=== PATIENT | male | born 1945 | race Caucasian/White ===

== ENCOUNTER → 2017-08-18 | Outpatient (CLI) | payer MEDICARE, OTHER ==
--- NOTE | 2017-08-18 11:26 | RAD ---
EXAM DESCRIPTION: KUB CLINICAL HISTORY: URINARY CALCULUS COMPARISON: None TECHNIQUE: Frontal view of abdomen and pelvis FINDINGS: General paucity of bowel gas in abdomen and pelvis. Slightly increased stool content in several colonic segments. No pneumatosis nor intraperitoneal free air. No pathologic calcification overlying either renal contour. Bony structures in lumbar spine appear intact with multilevel degenerative changes. IMPRESSION: No calcific urolithiasis clearly identified in this study. Paucity of bowel gas. No pneumatosis nor intraperitoneal free air. Question mild constipation Electronically signed by: Pal Mendoza MD 08/18/2017 11:25 AM DANCE THERAPIST
== END ==
LOC: RAD 10:43
PROVIDERS: ATTEND Urology
DX: N20.0 Calculus of kidney (principal); N20.9 Urinary calculus, unspecified

== ENCOUNTER → 2017-08-19 | Outpatient (CLI) | payer MEDICARE, OTHER ==
--- NOTE | 2017-08-19 10:42 | US ---
ABDOMINAL ULTRASOUND HISTORY:GEN ABD PAIN] COMPARISON: None TECHNIQUE: Grayscale and color Doppler sonographic evaluations of abdominal visceral organs FINDINGS: Liver demonstrates unremarkable echotexture. Several simple and minimally complex cysts identified in liver, the largest in the right hepatic lobe measures 7.7 x 7.7 x 6.0 cm. No concerning mass nor abnormal intrahepatic biliary distention. Major portal veins are patent with unremarkable directions of flow. Gallbladder is unremarkable in appearance with normal wall thickness. No shadowing stones nor pericholecystic fluid is identified. No sonographic Hill's sign. Common bile duct measures 6.1 mm in diameter. Spleen measures 13.1 cm in maximal span with unremarkable echotexture. Pancreas is unremarkable in appearance. Right kidney measures 12.5 cm in maximal span, and left kidney measures 13.5 cm in maximal span. No shadowing stone, hydronephrosis nor cortical lesion in either kidney. Abdominal aorta is patent with maximal diameter of 1.8 cm. IVC is patent. IMPRESSION: 1. No cholelithiasis nor sonographic suggestion of cholecystitis. 2. No abnormal intrahepatic and extrahepatic biliary distention. 3. No abnormality in either kidney. 4. No aneurysmal dilatation of abdominal aorta 5. Several simple and minimally complex cysts in liver. No concerning mass in liver. Electronically signed by: Pal Mendoza MD 08/19/2017 10:41 AM [employer]OCI[employer]
== END ==
LOC: US 08:35
PROVIDERS: ATTEND Family Medicine
DX: R10.84 Generalized abdominal pain (principal)

== ENCOUNTER → 2018-03-03 | Outpatient (CLI) | payer MEDICARE, OTHER ==
--- NOTE | 2018-03-03 16:28 | CT ---
EXAM DESCRIPTION: Head CLINICAL HISTORY: DIZZINESS COMPARISON: None available TECHNIQUE: Noncontrast head CT was performed with routine protocol. FINDINGS: Normal giraldo-white matter differentiation. Ventricles and sulci are normal for age. No high density hemorrhage, focal edema or shift of the midline. No sulcal effacement. Normal orbital contents. Basilar cisterns appear clear. Intact calvarium with no fracture or lytic lesion. Normal aeration of tympanic cavities and mastoid air cells. Large mucous retention cyst fills the right maxillary sinus measuring 3.8 cm. Patchy opacification of the bilateral ethmoid air cells is seen. Frontal sinus, sphenoid sinus air cells and left maxillary sinus appear relatively clear. Skull base appears intact. Symmetrical internal auditory canals. Coronal and sagittal reformatted images confirm the findings. IMPRESSION: No acute intracranial pathologic process. Paranasal sinus inflammatory disease. This exam was performed according to our departmental dose-optimization program, which includes automated exposure control, adjustment of the mA and/or kV according to patient size and/or use of iterative reconstruction technique. Total DLP equals 859.97 mGycm. Electronically signed by: Dinh Vidal MD 03/03/2018 4:26 PM CDT
== END ==
LOC: CT 15:47
PROVIDERS: ATTEND Physician Assistant
DX: R42 Dizziness and giddiness (principal); R35.0 Frequency of micturition; J32.9 Chronic sinusitis, unspecified

== ENCOUNTER → 2018-07-10 | Outpatient (CLI) | payer MEDICARE, OTHER | LOC: GMAL 11:35 | PROVIDERS: ATTEND Family Medicine | DX: D51.3 Other dietary vitamin B12 deficiency anemia (principal); E55.9 Vitamin D deficiency, unspecified ==

== ENCOUNTER → 2020-01-06 | Outpatient (CLI) | payer MEDICARE, OTHER | LOC: GMAL 10:58 | PROVIDERS: ATTEND Family Medicine | DX: D51.3 Other dietary vitamin B12 deficiency anemia (principal); R53.82 Chronic fatigue, unspecified; E55.9 Vitamin D deficiency, unspecified; R73.09 Other abnormal glucose; Z79.899 Other long term (current) drug therapy ==

== ENCOUNTER → 2020-07-05 | Outpatient (CLI) | payer MEDICARE, OTHER | LOC: GMAL 14:45 | PROVIDERS: ATTEND Family Medicine | DX: E29.1 Testicular hypofunction (principal) ==